=== PATIENT | female | born 1950 | race Caucasian/White ===

== ENCOUNTER → 2017-05-02 | Outpatient (CLI) | payer MEDICARE | LOC: M.RAD 12:06 | DX: R06.02 Shortness of breath (principal) ==

== ENCOUNTER → 2017-05-30 | Outpatient (CLI) | payer MEDICARE ==
--- NOTE | 2017-06-03 12:11 | SLEEP ---
[address] [address] SLEEP STUDY REPORT Name: SHARYNBONILLA L Room: [facility]#: [id number] Admission: 05/30/17 Attend Phys: Zenaida Soto MD Discharge: Date of : 54 Report #: [id number] THIS REPORT FOR: //name// CC: Zenaida Soto MD This study has been reviewed in its entirety by a board certified sleep specialist DATE OF SERVICE: 05/30/2017 ATTENDING PHYSICIAN: Zenaida Soto MD. The patient is a 67-year-old female with loud snoring and restless sleep. She has previously since 2012 been on BiPAP at 11/7 at home. She was intolerant of CPAP on her previous titration and then, she was in for another BiPAP study. She had been off the BiPAP for several hours when she came in to the lab. The overnight polysomnography was performed. Total sleep time was 3 hours. N1 was 57%, N2 was 28%, N3 was 0, stage REM was 15%. The patient had no significant O2 desaturation less than 90%. The patient's apnea hypopnea index, she had 41 hypopneas and 9 apneas. Apnea-hypopnea index was 64 total. The patient underwent BiPAP titration. She had moderate snoring noted through the study. She started off at 10/6 and was titrated up to 14/8 and achieved lateral sleep REM with resolution of her apnea spells. IMPRESSION: Moderate obstructive sleep apnea, clinically improved with BiPAP, I 14, E of 8 and a full facemask. No supplemental oxygen was needed. <ELECTRONICALLY SIGNED> By: Lev Osuna MD 06/03/17 1211 [id number] Osuna MD /nt
== END ==
LOC: M.SLEEPLAB 21:00
DX: G47.33 Obstructive sleep apnea (adult) (pediatric) (principal)

== ENCOUNTER → 2017-07-20 | Outpatient (CLI) | payer MEDICARE ==
[2017-07-20 10:34] LABS: CREATININE 0.7 mg/dL (0.6-1.3)
== END ==
LOC: M.LAB 10:00 → M.CT 11:00
PROVIDERS: Internal Medicine Cardiovascular Disease
DX: K76.9 Liver disease, unspecified (principal); I25.10 Atherosclerotic heart disease of native coronary artery without angina pectoris; R06.09 Other forms of dyspnea

== ENCOUNTER → 2018-02-15 | Outpatient (CLI) | payer MEDICARE | LOC: M.RAD 13:23 | DX: Z12.31 Encounter for screening mammogram for malignant neoplasm of breast (principal) ==

== ENCOUNTER → 2020-04-01 | Outpatient (CLI) | payer MEDICARE | LOC: M.RAD 13:00 | PROVIDERS: ATTEND Family Medicine | DX: Z12.31 Encounter for screening mammogram for malignant neoplasm of breast (principal) ==